=== PATIENT | male | born 1955 | race Caucasian/White ===

== ENCOUNTER 2018-09-23 07:34 | Day surgery (SDC) | payer OTHER ==
[2018-09-23] MEDS ORDERED: FENTAnyl 50 MCG/ML VIAL (10:00)
[2018-09-23] MEDS ORDERED: ATROPINE 1 MG/10 ML SYRINGE (10:00)
[2018-09-23] MEDS ORDERED: MIDAZOLAM 1 MG/ML 2 ML INJ ×2 (10:00)
== END 2018-09-23 14:13 | disposition home or self-care (01) ==
LOC: GIL 07:34
DX: Z12.11 Encounter for screening for malignant neoplasm of colon (principal); K64.8 Other hemorrhoids; K64.9 Unspecified hemorrhoids; K57.30 Diverticulosis of large intestine without perforation or abscess without bleeding; I10 Essential (primary) hypertension
CPT/HCPCS: 43239